=== PATIENT | female | born 2005 | race African-American/Black ===

== ENCOUNTER 2024-05-13 18:06 | Emergency (ER) | payer OTHER, SELFPAY ==
[2024-05-13 19:58] LABS: Bacteria/HPF None Seen HPF (None Seen); Bilirubin Negative (Negative); Blood, Urine 3+ (Negative); CAUTI Indications for Culture Acute Hematuria; Clarity Extra Turbid (Clear); Glucose, Urine (Dipstick) Normal (Negative); Ketone, Urine Negative (Negative); Leukocyte 500 Leu/uL (Negative); Nitrite Negative (Negative); Protein, Urine (Dipstick) 50 mg/dL (Neg-Trace); RBC/HPF Greater than 50 HPF (0-3); Specific Gravity, Urine 1.013 (1.002-1.036); Urobilinogen 3 mg/dL (Less than 2); WBC/HPF Greater than 50 HPF (0-3); pH, Urine 6.5 (5.0-9.0)
[2024-05-13 20:05] LABS: Urine Culture Reflex Yes Yes
== END 2024-05-13 20:55 | disposition home or self-care (01) ==
LOC: ERS 18:06
DX: L04.1 Acute lymphadenitis of trunk (principal)
CPT/HCPCS: 81001; 87077; 87086; 87186; 99283